=== PATIENT | male | born 1985 | race Caucasian/White ===

== ENCOUNTER 2018-08-30 07:50 | Emergency (ER) | payer OTHER ==
[2018-08-30] MEDS ORDERED: MECLIZINE HCL 25 MG TABLET PO ONE (08:55)
[2018-08-30] MEDS ORDERED: ONDANSETRON 4 MG TAB.RAPDIS PO ONE (08:55)
[2018-08-30 10:30] VITALS: BP 117/86
--- NOTE | 2018-08-30 14:45 | ER Document Report ---
Entered by SANJEEV JACOBO SCRIBE 08/30/18 0901 Acting as scribe for:DONTE SALINAS MD ED General - General Chief Complaint: Dizziness Stated Complaint: VOMITING Time Seen by Provider: 08/30/18 08:49 Primary Care Provider: ALBER WARD MD [Primary Care Provider] - Follow up as needed Mode of Arrival: Ambulatory Information source: Patient Notes: Patient is a 32 year old male presenting to the emergency department complaining of dizziness with associated nausea and vomiting onset this morning. Patient states he woke up and noticed he was dizzy while laying down. He describes this as the room spinning that is exacerbated with closing his eyes and moving his head up and down. He reports vomiting 2x this morning. Patient was recently diagnosed with a sinus infection and placed on amoxicilin. He states he continues to have a small amount of rhinorrhea but reports it has improved. TRAVEL OUTSIDE OF THE [place] IN LAST 30 DAYS: No - Related Data Allergies/Adverse Reactions: No Known Allergies Allergy (Verified 08/30/18 08:54) Past Medical History - General Information source: Patient - Social History Smoking Status: Never Smoker Cigarette use (# per day): No Chew tobacco use (# tins/day): No Smoking Education Provided: No Frequency of alcohol use: Rare Family History: Hypertension Patient has suicidal ideation: No Patient has homicidal ideation: No Renal/ Medical History: Reports: Hx Kidney Stones GI Medical History: Reports: Hx Gastroesophageal Reflux Disease Musculoskeletal Medical History: Reports Hx Musculoskeletal Deformity, Reports Hx Musculoskeletal Trauma Traumatic Medical History: Reports: Hx Fractures - Left forearm Past Surgical History: Reports: Hx Adenoidectomy, Hx Myringotomy, Hx Tonsillectomy - Immunizations Immunizations up to date: Yes Hx Diphtheria, Pertussis, Tetanus Vaccination: Yes Review of Systems - Review of Systems Constitutional: No symptoms reported EENT: See HPI Cardiovascular: See HPI, Dizziness Respiratory: No symptoms reported Gastrointestinal: See HPI, Nausea, Vomiting Genitourinary: No symptoms reported Male Genitourinary: No symptoms reported Musculoskeletal: No symptoms reported Skin: No symptoms reported Hematologic/Lymphatic: No symptoms reported Neurological/Psychological: No symptoms reported -: Yes All other systems reviewed and negative Physical Exam - Vital signs Vitals: Temp Pulse Resp BP Pulse Ox 97.8 F 87 17 128/78 H 98 08/30/18 07:58 08/30/18 07:58 08/30/18 07:58 08/30/18 07:58 08/30/18 07:58 - Notes Notes: GENERAL: Alert, interacts well. No acute distress. HEAD: Normocephalic, atraumatic. Complains of dizziness with rapid movement of head up and down. EYES: Pupils equal, round, and reactive to light. Extraocular movements intact. Lateral gaze nystagmus. ENT: Oral mucosa moist, tongue midline. Small amount of nasal congestion. NECK: Full range of motion. Supple. Trachea midline. LUNGS: Clear to auscultation bilaterally, no wheezes, rales, or rhonchi. No respiratory distress. HEART: Regular rate and rhythm. No murmurs, gallops, or rubs. ABDOMEN: Soft, non-tender. Non-distended. Bowel sounds present in all 4 quadrants. No guarding, rigidity, or rebound. EXTREMITIES: Moves all 4 extremities spontaneously. NEUROLOGICAL: Alert and oriented x3. Normal speech. PSYCH: Normal affect, normal mood. SKIN: Warm, dry, normal turgor. No rashes or lesions noted. Course - Vital Signs Vital signs: Temp Pulse Resp BP Pulse Ox 97.8 F 87 17 128/78 H 98 08/30/18 07:58 08/30/18 07:58 08/30/18 07:58 08/30/18 07:58 08/30/18 07:58 Discharge - Discharge Clinical Impression: Vertigo Condition: Stable Disposition: HOME, SELF-CARE Additional Instructions: Vertigo: You have experienced an episode of vertigo -- a whirling dizziness which may be accompanied by nausea and vomiting or staggering. Vertigo is often caused by an irritation of the inner ear, in which case it is called labyrinthi tis. It can also be a symptom of a degenerating inner ear, nerve damage, or brain injury. Your physician has evaluated you to determine whether any further testing is necessary. Vertigo is often treated with dramamine or meclizine. These medications are helpful, but stronger medication may be needed if you are vomiting. Rest in bed. You should not drive or operate machinery until completely better. It may take one to three weeks for recovery. If there are new symptoms, such as decreased hearing or vision, severe headache, weakness or faintness, or confusion, call the physician. Take medications as prescribed. Drink plenty of fluids and get plenty of rest over the next few days. You should not drive, operate machinery, climb poles, or any other activity that puts you or others at risk until your symptoms have completely cleared. Follow-up with your primary care provider later this week if not improving. RETURN TO THE EMERGENCY ROOM IF ANY NEW OR WORSENING SYMPTOMS. Prescriptions: Meclizine HCl [Antivert 25 mg Tablet] 25 mg PO TID PRN #30 tablet PRN Reason: Forms: Return to Work Referrals: ALBER WARD MD [Primary Care Provider] - Follow up as needed Scribe Attestation: 08/30/18 09:04 I personally performed the services described in the documentation, reviewed and edited the documentation which was dictated to the scribe in my presence, and it accurately records my words and actions. I personally performed the services described in the documentation, reviewed and edited the documentation which was dictated to the scribe in my presence, and it accurately records my words and actions.
== END 2018-08-30 10:30 | disposition home or self-care (01) ==
LOC: ER 07:50
DX: R42 Dizziness and giddiness (principal); R11.2 Nausea with vomiting, unspecified; J32.9 Chronic sinusitis, unspecified
CPT/HCPCS: 99283; S0119